=== PATIENT | male | born 1990 | race Caucasian/White ===

== ENCOUNTER 2018-08-14 16:23 | Emergency (ER) | payer SELFPAY ==
[~2018-08-14] VITALS: Ht 165.1 cm; Wt 66.0 kg
[~2018-08-14 16:23] MED LIST: NO MEDS
[2018-08-14 16:29] VITALS: BP 122/77; PULSE 80; RESP 20; Ht 165.1 cm; Wt 66.0 kg
== END 2018-08-14 19:50 | disposition left against medical advice (07) ==
LOC: FTE 16:23
DX: Z53.21 Procedure and treatment not carried out due to patient leaving prior to being seen by health care provider (principal)